=== PATIENT | male | born 1985 | race Caucasian/White ===

== ENCOUNTER 2024-03-15 06:25 | Day surgery (SDC) | payer BC, SELFPAY ==
[2024-03-15] VITALS (10 sets, daily range): BP systolic 14–137; BP diastolic 67–80; BMI 23.3
[2024-03-15] MEDS: NORMOSOL-R/PLASMALYTE-A 1000 IV (10:04)
[2024-03-15] MEDS: LYRICA 150 MG PO (10:04)
[2024-03-15] MEDS: TYLENOL 1000 MG PO (10:04)
[2024-03-15] MEDS: CELEBREX 200 MG PO (10:04)
--- NOTE | 2024-03-15 13:27 | W.IMMPOSTOP ---
Surgical Immed Post Op Note
-
Primary Surgeon: Noel Castillo MD
Assisting Surgeon: None
Pre-op Diagnosis: Anal fissure�fistula
Post-op Diagnosis: Anal fissure�fistula
Procedure Performed: Exam under anesthesia, fistulotomy, fissurectomy, Botox injection, bilateral pudendal nerve block
Anesthesia Type: Sedation with local
Specimen / Cultures: Posterior anal fissure, fissure margins
Estimated Blood Loss: 5 mL
Complications: None
Operative Findings: Identified a superficial fistula in the posterior midline associated with an anal fissure; no purulence or concern for infection, but minimal fibrinous exudate; performed fistulotomy, no sphincter involvement; debrided base of
fissure and passed this off as specimen; trimmed edges of fissure and sent as fissure margins; noted hypertonic internal sphincter; performed four-quadrant Botox injection
--- NOTE | 2024-03-15 13:33 | OR.RPT ---
Operative Report
Operative Report
DATE OF OPERATION: 03/15/2024
SURGEON: Noel Castillo MD
PREOPERATIVE DIAGNOSIS: Posterior midline anal fissure�fistula
POSTOPERATIVE DIAGNOSIS: Posterior midline anal fissure�fistula
OPERATION: Exam under anesthesia, fistulotomy of superficial fistula, injection of Botox into internal anal sphincter, fissurectomy, bilateral pudendal nerve block
ASSISTANTS:
1. None
ANESTHESIA: MAC w/ local
ESTIMATED BLOOD LOSS: 5 mL
FINDINGS:
1. Superficial anal fistula at the anal verge; no sphincter involvement, associated with posterior midline anal fissure; performed fistulotomy and debrided fissure wound; saucerized edges
2. Hypertonic internal sphincter; performed Botox injection
3. Incidental findings: no other concerning anal pathology noted
SPECIMENS:
1. Posterior anal fissure
2. Fissure margins
DRAINS: None
COMPLICATIONS: None
INDICATIONS: The patient is a 39-year-old male who initially presented with an anal fissure and concern for associated superficial fistula. After a trial of nonoperative measures, his symptoms did not improve. Therefore, the patient was
recommended to have surgery. The operation was discussed with the patient in detail, including the risks, benefits and alternatives. Risks described included, but not limited to, bleeding, infection, urinary retention, damage to nearby structures
such as the anal sphincter, fecal incontinence, recurrence, and anesthetic risks. The patient understood and agreed to proceed. The consent was signed and placed in the chart.
PROCEDURE IN DETAIL: The patient was taken to the operating room. The patient was placed on the operating table in prone position. Sequential compression devices were placed bilaterally. Sedation was commenced without complication. Two seat belts
were secured around the legs and upper back. The buttocks were taped apart. The perineum was shaved, prepped and draped in the usual fashion. A time-out was then performed verifying the correct patient, procedure, operative site, positioning, and
special equipment.
Local anesthesia used was a mixture of 60 mL of 0.25% Marcaine with epinephrine and 0.6 mg of dexamethasone. 40 mL was injected perianally at the beginning of the case. The anorectal exam was performed assessing all four quadrants of the anal canal
using Hill-Blair retractors in progressively increasing size. The posterior midline at the level of the anal verge, there was a punctate external opening. A fistula probe was passed through this easily and an internal opening was identified 1
cm distal, just within the anal verge. No sphincter muscle was palpable along the fistula. At the internal opening, there was evidence of a fissure, but the majority of which appeared underlying the fistula. The remainder of the anal canal
appeared normal without concerning hemorrhoids or other pathology. The internal sphincter was hypertonic and would not accommodate the largest Hill�Blair retractor.
As there was no sphincter involvement, a fistulotomy was performed using electrocautery. This exposed the anal fissure underlying the fistula. The fissure was about 1 cm in length and 5 mm wide. There was some granulation tissue along the base of
the fissure, which was debrided and passed off as posterior anal fissure specimen. The base was fulgurated to obtain hemostasis. The edges of the fissure�fistula were elevated and excised in order to saucerize the wound. These were passed off as
fissure margin specimen.
As the internal sphincter was noted to be hypertonic, I proceeded with Botox injection. 100 units of Botox was drawn up with 2 mL of sterile saline. Using a 27-gauge needle, the Botox was injected in 4 quadrants in equal portions, specifically 25
units in the anterior midline, right lateral quadrant, posterior midline and left lateral quadrant. Care was taken to avoid incidental injection into the external sphincter.
The remaining 20 mL of local were injected. 5 mL was injected bilaterally for a pudendal nerve block. 10 mL was injected around the surgical site and perianally. Hemostasis was reassessed once more using the small Hill-Blair and was confirmed.
Surgicel was placed in the operative site prophylactically.
At this point, the procedure was complete. All needle, sponge and instrument counts were correct. The patient tolerated the procedure well and was transferred to the recovery room in stable condition with gauze dressing in place secured with silk
tape.
DICTATED BY: Noel Castillo MD
== END 2024-03-15 14:40 | disposition home or self-care (01) ==
LOC: SDS 06:25
PROVIDERS: ATTENDING PHYSICIAN Surgery
DX: K60.2 Anal fissure, unspecified (principal); K60.30 Anal fistula, unspecified
CPT/HCPCS: 46270; 46200; 46505; 88304; J0585